=== PATIENT | female | born 1950 | race Caucasian/White ===

== ENCOUNTER 2021-03-12 14:20 | Observation (INO) ==
[2021-03-12 15:52] LABS: Hematocrit 42.5 % (35.3-44.9); Hemoglobin 14.2 g/dL (11.5-15.4); Mean Corpuscular HGB Conc 33.4 g/dL (31.6-35.5); Mean Corpuscular Hemoglobin 31.1 pg (28.0-33.3); Mean Platelet Volume 10.9 fL (9.4-12.4); Platelet Count 214 K/mcL (140-400); Red Blood Count 4.57 M/mcL (3.82-4.97); Red Cell Distribution Width 13.2 % (11.5-14.5); White Blood Count 8.8 K/mcL (4.3-11.1)
[2021-03-12 16:11] LABS: Alanine Aminotransferase 32 Units/L (7-52); Albumin 4.2 g/dL (3.5-5.7); Albumin/Globulin Ratio 1.3 (1.1-2.2); Alkaline Phosphatase 78 Units/L (34-104); Aspartate Amino Transferase 25 Units/L (13-39); BUN/Creatinine Ratio 28 (6-26); Bilirubin,Direct 0.1 mg/dL (0.0-0.2); Bilirubin,Indirect 0.3 mg/dL (0.0-1.0); Bilirubin,Total 0.4 mg/dL (0.3-1.0); Blood Urea Nitrogen 24 mg/dL (8-23); Calcium 9.6 mg/dL (8.6-10.3); Carbon Dioxide 27 mEq/L (23-29); Chloride 108 mEq/L (98-107); Globulin 3.2 g/dL (2.4-3.5); Glucose 105 mg/dL (70-105); Lipase 13 Units/L (11-82); Osmolality,Calculated 294 (280-300); Potassium 4.1 mEq/L (3.5-5.1); Sodium 140 mEq/L (136-145); Total Protein 7.4 g/dL (6.4-8.9); Troponin I < 0.03 ng/mL (< 0.04); eGFR For African Americans > 60 (> 60); eGFR For Non-African Americans > 60 (> 60)
[2021-03-12] MEDS ORDERED: Aspirin 325 MG TABLET PO ONE (16:30)
[2021-03-12] MEDS ORDERED: Naloxone 0.4 MG/ML INJ IVP PRN (17:39)
[2021-03-12] MEDS ORDERED: Perflutren Lipid Microsphere 1.3 ML in 0.9 % Sodium Chloride 8.7 ML IVP PRN (17:44)
[2021-03-12 19:22] LABS: Bilirubin,Urine Negative (Negative); Blood,Urine Negative (Negative); Clarity,Urine Clear (Clear); Color,Urine Yellow (Yellow); Glucose,Urine (UA) Normal (Normal); Ketones,Urine Negative (Negative); Leukocyte Esterase,Urine Negative (Negative); Nitrite,Urine Negative (Negative); PH,Urine 5.5 pH Units (5.0-8.0); Protein,Urine Negative (Neg-Trace); Urobilinogen,Urine Normal (Normal)
[2021-03-12] MEDS: Acetaminophen 325 MG TABLET PO PRN (21:05)
[2021-03-12] MEDS: Nicotine 14 MG PATCH.TD24 TD SCH (21:06)
[2021-03-12] MEDS: *HR* Heparin 5,000 UNIT/ML VIAL SQ SCH (21:14)
[2021-03-12] MEDS ORDERED: Fluticasone Propionate Nasal 50 MCG/SPRAY BOTTLE NS PRN (22:00)
[2021-03-12] MEDS: traZODone 50 MG TABLET PO SCH (22:42)
[2021-03-12] MEDS: Budesonide/Formoterol 160/4.5 1 PUFF INH IH SCH (22:54)
[2021-03-13] MEDS: Melatonin 3 MG TABLET PO SCH ×2 (04:16→22:02)
[2021-03-13] MEDS: *HR* Heparin 5,000 UNIT/ML VIAL SQ SCH ×2 (05:31→17:53)
[2021-03-13] MEDS: Budesonide/Formoterol 160/4.5 1 PUFF INH IH SCH ×2 (07:51→19:58)
[2021-03-13] MEDS: Loratadine 10 MG TABLET PO SCH (08:36)
[2021-03-13] MEDS: Acetaminophen 325 MG TABLET PO PRN ×2 (08:36→17:48)
[2021-03-13] MEDS: Pyridoxine (B-6) 50 MG TABLET PO SCH (08:36)
[2021-03-13] MEDS: Aspirin Enteric Coated 325 MG Tablet PO SCH (08:36)
[2021-03-13] MEDS: Cholecalciferol (D-3) 1,000 UNIT (25MCG) TABLET PO SCH (08:37)
[2021-03-13] MEDS: Nicotine 14 MG PATCH.TD24 TD SCH (08:37)
[2021-03-13] MEDS ORDERED: Famotidine 20 MG TABLET PO SCH (09:00)
[2021-03-13] MEDS ORDERED: [UNRECOGNIZED DRUG - OTHER] PO SCH (09:00)
[2021-03-13] MEDS ORDERED: BIOTIN 1 MG PO SCH (09:00)
[2021-03-13] MEDS ORDERED: PHENYLEPH PO SCH (09:00)
[2021-03-13] MEDS ORDERED: GUAIFEN PO SCH (09:00)
[2021-03-13] MEDS ORDERED: ACETAMINOPHN PO SCH (09:00)
[2021-03-13] MEDS ORDERED: Gabapentin 100 MG CAPSULE PO SCH (15:00)
[2021-03-13] MEDS ORDERED: tiZANidine 4 MG TABLET PO PRN (18:53)
[2021-03-13] MEDS ORDERED: Artificial Tears SOLN 15 ML BOTTLE BOTH EYES SCH (21:00)
[2021-03-13] MEDS: Gabapentin 400 MG CAPSULE PO SCH (22:03)
[2021-03-13] MEDS: traZODone 50 MG TABLET PO SCH (22:04)
[2021-03-14] MEDS: *HR* Heparin 5,000 UNIT/ML VIAL SQ SCH (05:42)
[2021-03-14 06:34] VITALS: BP 116/70; PULSE 64; TEMP 97.9; O2SAT 93
[2021-03-14 07:14] LABS: Basophils % 0.6 %; Eosinophils # 0.5 K/mcL (0.0-0.6); Eosinophils % 8.3 %; Hematocrit 37.9 % (35.3-44.9); Immature Granulocytes % 0.3 % (0-4); Lymphocytes % 32.6 %; Mean Corpuscular HGB Conc 33.2 g/dL (31.6-35.5); Mean Corpuscular Hemoglobin 31.1 pg (28.0-33.3); Mean Corpuscular Volume 93.6 fL (83.0-100.0); Mean Platelet Volume 11.4 fL (9.4-12.4); Monocytes # 0.7 K/mcL (0.0-1.3); Monocytes % 11.4 %; Neutrophils # 2.9 K/mcL (1.6-8.9); Platelet Count 190 K/mcL (140-400); Red Blood Count 4.05 M/mcL (3.82-4.97); Red Cell Distribution Width 13.3 % (11.5-14.5); Segmented Neutrophils % 46.8 %; White Blood Count 6.2 K/mcL (4.3-11.1)
[2021-03-14 07:15] LABS: Hemoglobin 12.6 g/dL (11.5-15.4)
[2021-03-14 07:38] LABS: BUN/Creatinine Ratio 23 (6-26); Blood Urea Nitrogen 19 mg/dL (8-23); Calcium 9.1 mg/dL (8.6-10.3); Carbon Dioxide 24 mEq/L (23-29); Chloride 107 mEq/L (98-107); Glucose 115 mg/dL (70-105); Osmolality,Calculated 293 (280-300); Sodium 140 mEq/L (136-145); eGFR For African Americans > 60 (> 60); eGFR For Non-African Americans > 60 (> 60)
[2021-03-14] MEDS: Pyridoxine (B-6) 50 MG TABLET PO SCH (08:18)
[2021-03-14] MEDS: Cholecalciferol (D-3) 1,000 UNIT (25MCG) TABLET PO SCH (08:18)
[2021-03-14] MEDS: Gabapentin 400 MG CAPSULE PO SCH (08:18)
[2021-03-14] MEDS: Loratadine 10 MG TABLET PO SCH (08:19)
[2021-03-14] MEDS: Aspirin Enteric Coated 325 MG Tablet PO SCH (08:19)
[2021-03-14] MEDS ORDERED: Famotidine 20 MG TABLET PO SCH (09:00)
== END 2021-03-14 11:35 | disposition home or self-care (01) ==
LOC: 3BNU 14:20 → EMEROOARM 14:20 → 3BNU 19:55
PROVIDERS: ADMIT Pharmacist; ATTEND Pharmacist